=== PATIENT | male | born 2000 | race Caucasian/White ===

== ENCOUNTER 2019-04-17 13:00 | Emergency (ER) | payer OTHER ==
[~2019-04-17] VITALS: Ht 175.3 cm; Wt 120.7 kg
[2019-04-17 13:04] VITALS: BP 133/70
== END 2019-04-17 14:33 | disposition home or self-care (01) ==
LOC: ED 14:19
DX: G89.11 Acute pain due to trauma (principal); M25.512 Pain in left shoulder; I10 Essential (primary) hypertension
CPT/HCPCS: 99283

== ENCOUNTER 2019-11-06 20:25 | Emergency (ER) | payer BC, OTHER ==
[~2019-11-06] VITALS: Ht 175.3 cm; Wt 120.4 kg
[~2019-11-06 20:25] MED LIST: MELOXICAM
[2019-11-06] MEDS ORDERED: ACETAMINOPHEN 500 MG TABLET ONE (20:55)
[2019-11-06] MEDS ORDERED: ACETAMINOPHEN 500 MG TABLET PO ONE (21:00)
[2019-11-06 21:24] LABS: RAPID INFLUENZA A POSITIVE (Negative); RAPID INFLUENZA B Negative (Negative)
[2019-11-06 22:20] LABS: BASOPHILS # (AUTO) 0.02 x10^3/uL (0-0.1); BASOPHILS % (AUTO) 0 % (0-1); EOSINOPHILS # (AUTO) 0.01 x10^3/uL (0-0.4); EOSINOPHILS % (AUTO) 0 % (1-7); LYMPHOCYTES # (AUTO) 0.44 x10^3/uL (1-3.4); LYMPHOCYTES % (AUTO) 8 % (22-44); MD NO; MEAN CORPUSCULAR HEMOGLOBIN 28.3 pg (27.5-34.5); MEAN CORPUSCULAR HGB CONC 33.9 g/dL (33.2-36.2); MEAN CORPUSCULAR VOLUME 83.5 fL (81-97); MEAN PLATELET VOLUME 7.8 fL (7.4-10.4); MONOCYTES # (AUTO) 0.47 x10^3/uL (0.2-0.8); MONOCYTES % (AUTO) 8 % (2-9); NEUTROPHILS # (AUTO) 4.78 x10^3/uL (1.8-6.8); NEUTROPHILS % (AUTO) 84 % (42-75); PLATELET COUNT 187 x10^3/uL (130-400); RED BLOOD COUNT 4.88 x10^6/uL (4.38-5.82); RED CELL DISTRIBUTION WIDTH 14.5 % (9.4-14.8)
[2019-11-06 22:24] LABS: ALBUMIN 3.4 g/dL (3.4-5.0); ANION GAP 5 mmol/L (5-15); CALCIUM 8.6 mg/dL (8.5-10.1); CHLORIDE 105 mmol/L (98-107); CREATININE 1.04 mg/dL (0.7-1.3)
[2019-11-06 22:49] VITALS: BP 104/52
== END 2019-11-06 23:02 | disposition home or self-care (01) ==
LOC: ED 22:30
DX: J10.1 Influenza due to other identified influenza virus with other respiratory manifestations (principal); F17.210 Nicotine dependence, cigarettes, uncomplicated; M79.10 Myalgia, unspecified site; R50.9 Fever, unspecified; R51 Headache
CPT/HCPCS: 36415; 71046; 80048; 82040; 85025; 87400; 99284; 99406

== ENCOUNTER 2020-06-07 21:58 | Emergency (ER) | payer MEDICAID ==
[~2020-06-07] VITALS: Ht 175.3 cm; Wt 118.8 kg
[2020-06-07 22:00] VITALS: BP 152/93
== END 2020-06-07 23:03 | disposition home or self-care (01) ==
LOC: ED 22:30
DX: B37.2 Candidiasis of skin and nail (principal); I10 Essential (primary) hypertension
CPT/HCPCS: 99282

== ENCOUNTER 2020-07-10 07:03 | Emergency (ER) | payer MEDICAID ==
[~2020-07-10] VITALS: Ht 175.3 cm; Wt 122.2 kg
--- NOTE | 2020-07-10 07:57 | NUR ---
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
--- NOTE | 2020-07-10 08:09 | NUR ---
THIS IS A 20 YO M W/ C/O BODYACHES AND COUGH X5 HOURS. PT REPORTS WAS SENT HOME BY EMPLOYER AND NEEDS TEST. PT RESTING ON [employer] W/ CALL LIGHT IN REACH AND SIDE RAIL UPX1. BRETT OSBORN.
[2020-07-10 09:18] VITALS: BP 126/85
== END 2020-07-10 09:25 | disposition home or self-care (01) ==
LOC: ED 08:31
DX: B34.9 Viral infection, unspecified (principal); Z20.828 Contact with and (suspected) exposure to other viral communicable diseases; R05 Cough; R06.02 Shortness of breath; R09.81 Nasal congestion; M79.10 Myalgia, unspecified site; I10 Essential (primary) hypertension; Z87.891 Personal history of nicotine dependence
CPT/HCPCS: 36415; 71045; 87635; 99284

== ENCOUNTER 2020-09-01 22:42 | Emergency (ER) | payer MEDICAID ==
[~2020-09-01] VITALS: Ht 175.3 cm; Wt 126.0 kg
--- NOTE | 2020-09-01 23:16 | NUR ---
PT TO ROOM FROM LOBBY
[2020-09-02 00:16] VITALS: BP 148/88
== END 2020-09-02 00:19 | disposition home or self-care (01) ==
LOC: ED 09-02
DX: J02.9 Acute pharyngitis, unspecified (principal); Z20.828 Contact with and (suspected) exposure to other viral communicable diseases; I10 Essential (primary) hypertension; F17.210 Nicotine dependence, cigarettes, uncomplicated
CPT/HCPCS: 87635; 99283; 99406

== ENCOUNTER 2021-02-27 06:16 | Emergency (ER) | payer MEDICAID ==
[~2021-02-27] VITALS: Ht 175.3 cm; Wt 121.4 kg
--- NOTE | 2021-02-27 06:20 | NUR ---
INITIAL PT CONTACT. PT PRESENTS TO ED C/O "AFTER I VAPE I ALWAYS COUGH AND A LOT OF THE TIME I COUGH UNTIL I THROW UP, WHEN I THREW UP MY NORMAL AMOUNT I DIDN'T STOP VOMITING AND THEN IT WAS ALL BLOOD. IT ONLY HAPPENED ONE TIME." PT DENIES ANY ADDITIONAL COMPLAINTS OR SYMPTOMS AT THIS TIME. PT SITTING UPRIGHT ON PAULA, NADJuan Antonio, VSS. PT PLACED OMN CONTINUOUS MONITORING. CALL LIGHT AND BELONGINGS WITHIN REACH. ERP AT BEDSIDE.
--- NOTE | 2021-02-27 06:53 | NUR ---
REPORT TO SAVITA CRAWFORD
--- NOTE | 2021-02-27 06:57 | NUR ---
ASSUMING CARE OF PATIENT AFTER BEDSIDE REPORT FROM ALEXANDRA. PT RESTING IN BED COMFORTABLY. VSS. WEST.
[2021-02-27 07:09] LABS: ALBUMIN 3.3 g/dL (3.4-5.0); ANION GAP 9 mmol/L (5-15); CALCIUM 8.6 mg/dL (8.5-10.1); CHLORIDE 112 mmol/L (98-107); CREATININE 0.86 mg/dL (0.7-1.3)
[2021-02-27 07:11] LABS: BASOPHILS % (AUTO) 1 % (0-1); EOSINOPHILS % (AUTO) 3 % (1-7); LYMPHOCYTES % (AUTO) 22 % (22-44); MEAN CORPUSCULAR HEMOGLOBIN 28.4 pg (27.5-34.5); MEAN CORPUSCULAR HGB CONC 33.9 g/dL (33.2-36.2); MEAN PLATELET VOLUME 7.5 fL (7.4-10.4); MONOCYTES % (AUTO) 6 % (2-9); NEUTROPHILS % (AUTO) 69 % (42-75); PLATELET COUNT 207 x10^3/uL (130-400); RED BLOOD COUNT 5.17 x10^6/uL (4.38-5.82); RED CELL DISTRIBUTION WIDTH 15.1 % (9.4-14.8)
[2021-02-27 07:23] VITALS: BP 145/78
--- NOTE | 2021-02-27 07:51 | NUR ---
Patient/Caregiver given discharge instructions and they have confirmed that they understand the instructions. Patient ambulatory with steady gait. NAD, all questions answered appropriately, denies additional needs at this time. No personal belongings left in room after discharge.
== END 2021-02-27 07:52 | disposition home or self-care (01) ==
LOC: ED 06:42
DX: K92.0 Hematemesis (principal); F17.210 Nicotine dependence, cigarettes, uncomplicated; R10.13 Epigastric pain
CPT/HCPCS: 36415; 71045; 80048; 82040; 85025; 99284; 99406